=== PATIENT | male | born 2000 | race Caucasian/White ===

== ENCOUNTER 2018-10-24 17:56 | Emergency (ER) | payer MEDICAID, OTHER ==
[~2018-10-24] VITALS: Ht 175.3 cm; Wt 77.1 kg
[~2018-10-24 17:56] MED LIST: MINO55TA PO
[2018-10-24 18:00] VITALS: BP_SYST 140
[2018-10-24 19:52] LABS: PROTHROMBIN TIME 10.6 SECS (9.5-12.5)
[2018-10-24 19:53] LABS: HEMATOCRIT 44.2 % (36-54); HEMOGLOBIN 15.3 g/dL (14.0-18.0); MEAN CORPUSCULAR VOLUME 87 fL (79.0-98.0); RED BLOOD CELL COUNT(AUTO) 5.07 MIL/uL (4.2-6.2); WHITE BLOOD COUNT (AUTO) 5.4 K/uL (4.5-11.0)
[2018-10-24 19:54] LABS: BASOPHILS % (AUTO) 0.3 % (0.0-2.0); EOSINOPHILS % (AUTO) 2.5 % (0.0-4.0); LYMPHOCYTES # (AUTO) 1.6 K/uL (1.0-5.5); LYMPHOCYTES % (AUTO) 30.2 % (20.5-51.5); MEAN CORPUSCULAR HEMOGLOBIN 30 pg (27-31); MEAN CORPUSCULAR HGB CONC 35 % (32-36); MONOCYTES % (AUTO) 10.2 % (1.7-9.3); NEUTROPHILS # (AUTO) 3.1 K/uL (1.8-7.7); NEUTROPHILS % (AUTO) 56.8 % (40.0-70.0); PLATELET COUNT (AUTO) 228 K/uL (130-430); RED CELL DISTRIBUTION WIDTH 13.3 % (9.0-15.0)
[2018-10-24 19:55] LABS: EOSINOPHILS # (AUTO) 0.1 K/uL (0.0-0.4); MONOCYTES # (AUTO) 0.5 K/uL (0.0-1.0)
[2018-10-24 20:10] LABS: ALBUMIN 3.9 g/dL (3.4-4.8); CALCIUM 8.7 mg/dL (8.4-11.0); CREATININE 0.78 mg/dL (0.55-1.30); POTASSIUM 3.8 mmol/L (3.5-5.1); TOTAL BILIRUBIN 0.4 mg/dL (0.0-1.0)
[2018-10-24] MEDS ORDERED: LevALBUTEROL HCL 1.25 MG/0.5 ML *CONC.* VIAL.NEB (XOPENEX CONC.) INH ONE (20:45)
[2018-10-24] MEDS ORDERED: KETOROLAC TROMETHAMINE 30 MG VIAL IVP ONE (20:45)
[2018-10-24] MEDS ORDERED: ACETAMINOPHEN/CODEINE 300 MG-30 MG TABLET PO ONE (23:30)
[2018-10-25 01:02] VITALS: BP_SYST 125
== END 2018-10-25 01:01 | disposition home or self-care (01) ==
LOC: SED 17:56
DX: R07.89 Other chest pain (principal)
CPT/HCPCS: 36415; 71046; 80053; 83880; 84484; 85025; 85379; 85610; 85730; 86710; 93005; 96374; 99284; J1885; J7612

== ENCOUNTER 2021-02-14 08:04 | Emergency (ER) | payer MEDICAID, SELFPAY ==
[~2021-02-14] VITALS: Ht 172.7 cm; Wt 65.8 kg
--- NOTE | 2021-02-14 08:09 | NUR ---
Patient to ER bed 8 to gown for evaluation. Side rails up. Report given to Berta CANALES.
[2021-02-14 08:12] VITALS: BP_SYST 130
--- NOTE | 2021-02-14 08:15 | NUR ---
Pt walked in to ER with c/o chest tightness and SOB x2 days, V/S stable no acute distress noted.
--- NOTE | 2021-02-14 08:17 | NUR ---
ER at bedside examining patient.
--- NOTE | 2021-02-14 08:20 | NUR ---
Patient transported to radiology via wheelchair, accompanied by staff.
[2021-02-14 09:06] LABS: BASOPHILS % (AUTO) 0.4 % (0.0-2.0); EOSINOPHILS # (AUTO) 0.2 K/uL (0.0-0.4); EOSINOPHILS % (AUTO) 4.3 % (0.0-4.0); HEMOGLOBIN 15.5 g/dL (14.0-18.0); LYMPHOCYTES # (AUTO) 1.3 K/uL (1.0-5.5); LYMPHOCYTES % (AUTO) 24.8 % (20.5-51.5); MEAN CORPUSCULAR HEMOGLOBIN 30 pg (27-31); MEAN CORPUSCULAR HGB CONC 34 % (32-36); MEAN CORPUSCULAR VOLUME 87 fL (79.0-98.0); MONOCYTES # (AUTO) 0.4 K/uL (0.0-1.0); MONOCYTES % (AUTO) 7.9 % (1.7-9.3); NEUTROPHILS # (AUTO) 3.3 K/uL (1.8-7.7); NEUTROPHILS % (AUTO) 62.6 % (40.0-70.0); PLATELET COUNT (AUTO) 210 K/uL (130-430); RED BLOOD CELL COUNT(AUTO) 5.19 MIL/uL (4.2-6.2); RED CELL DISTRIBUTION WIDTH 13.8 % (9.0-15.0); WHITE BLOOD COUNT (AUTO) 5.2 K/uL (4.8-10.8)
[2021-02-14 09:17] LABS: CALCIUM 9.1 mg/dL (8.4-11.0); CREATININE 1.01 mg/dL (0.55-1.30); POTASSIUM 4.7 mmol/L (3.5-5.1)
[2021-02-14 09:59] VITALS: BP_SYST 130
--- NOTE | 2021-02-14 10:00 | NUR ---
Patient given written and verbal discharge instructions and verbalizes understanding. ER MD discussed with patient the results and treatment provided. Patient in stable condition. ID arm band removed. No prescription given. Patient educated on pain management and to follow up with PMD. Pain Scale 0. Opportunity for questions provided and answered. Medication side effect fact sheet provided.
== END 2021-02-14 09:59 | disposition home or self-care (01) ==
LOC: SED 08:04
DX: R07.81 Pleurodynia (principal); Z79.899 Other long term (current) drug therapy; Z20.822 Contact with and (suspected) exposure to COVID-19
CPT/HCPCS: 36415; 71045; 80048; 85025; 85379; 86710; 93005; 99285

== ENCOUNTER 2023-07-28 20:34 | Emergency (ER) | payer MEDICAID ==
[~2023-07-28] VITALS: Ht 175.3 cm; Wt 83.9 kg
[2023-07-28 20:50] VITALS: BP_SYST 138; PULSE 84; RESP 20; TEMP 98.3; O2SAT 98
[2023-07-28] MEDS ORDERED: MED4 PO ×2 (21:14→21:26)
[2023-07-28] MEDS ORDERED: ALBMDI INH ×2 (21:16→21:26)
[2023-07-28 21:26] VITALS: BP_SYST 132; PULSE 74; RESP 16; TEMP 98.4; O2SAT 98
== END 2023-07-28 21:32 | disposition home or self-care (01) ==
LOC: SED 20:34
DX: J45.909 Unspecified asthma, uncomplicated (principal); Z79.899 Other long term (current) drug therapy
CPT/HCPCS: 71045; 99283